=== PATIENT | female | born 1985 | race Caucasian/White ===

== ENCOUNTER 2019-08-27 18:14 | Emergency (ER) | payer MEDICAID, OTHER ==
[~2019-08-27] VITALS: Ht 157.5 cm; Wt 99.8 kg
[~2019-08-27 18:14] MED LIST: OMEP40EC24 PO
[2019-08-27 18:31] VITALS: BP 134/88
--- NOTE | 2019-08-27 18:51 | NUR ---
34 Y/O F C/O LICE IN HAIR X1 WEEK WITH RED BITE GARCIA ON BOTH ARMS. PT STATES SHE HAS NOT USED AN OVER THE COUNTER MEDICATION FOR THE LICE. PT IS HERE WITH 3 OF HER CHILDREN, ALL WITH LICE. PT DENIES N/V/F. NKA
--- NOTE | 2019-08-27 19:11 | NUR ---
DR CASTRO DISCHARGED PATIENT.
[2019-08-27 19:16] VITALS: BP 134/88
== END 2019-08-27 19:11 | disposition home or self-care (01) ==
LOC: MED 18:14
DX: L29.9 Pruritus, unspecified (principal); Z04.89 Encounter for examination and observation for other specified reasons
CPT/HCPCS: 99281